=== PATIENT | female | born 1965 | race Caucasian/White ===

== ENCOUNTER 2020-02-02 14:13 | Inpatient (IN) ==
[2020-02-02] MEDS ORDERED: Vancomycin 1,000 MG VIAL ONE (14:56)
[2020-02-02] MEDS ORDERED: Ethanol\\Acetic Acid\\Na Ace\\Ben 1,000 ML IRRIG.SOLN IR ONE (14:56)
[2020-02-02] MEDS ORDERED: Ringers Solution, Lactated 1,000 ML IVC SCH (15:00)
[2020-02-02] MEDS ORDERED: Famotidine 20 MG/2 ML VIAL IVP ONE (15:21)
[2020-02-02] MEDS ORDERED: Acetaminophen IV 1,000 MG/100 ML INFUS..BTL IVPB ONE (15:21)
[2020-02-02] MEDS ORDERED: *HR* OxyCODONE Immed Rel 5 MG TABLET PO PRN (15:22)
[2020-02-02] MEDS ORDERED: Ketorolac 15 MG/ML VIAL IVP ONE (15:22)
[2020-02-02] MEDS ORDERED: *HR* HYDROmorphone PF 0.5 MG/0.5 ML SYRINGE IVP PRN (15:22)
[2020-02-02] MEDS ORDERED: Ondansetron 4 MG/2 ML VIAL IVP ONE (15:22)
[2020-02-02] MEDS ORDERED: *HR* Promethazine 25 MG/ML VIAL IVP PRN (15:22)
[2020-02-02 15:27] LABS: Sodium 138 mEq/L (136-145)
[2020-02-02] MEDS ORDERED: *HR* Midazolam HCl 2 MG/2 ML VIAL ONE (15:35)
[2020-02-02] MEDS ORDERED: Ropivacaine/PF 0.5% 30 ML VIAL ONE (15:36)
[2020-02-02] MEDS ORDERED: Dexamethasone 4 MG/ML VIAL ONE (15:39)
[2020-02-02] MEDS ORDERED: Lidocaine -MPF 2% 2 ML VIAL ONE (15:39)
[2020-02-02] MEDS ORDERED: Ondansetron 4 MG/2 ML VIAL ONE (15:39)
[2020-02-02] MEDS ORDERED: *HR* Succinylcholine 200 MG/10 ML VIAL IVP ONE (15:39)
[2020-02-02] MEDS ORDERED: Lidocaine -MPF 4% 5 ML AMPUL ONE (15:39)
[2020-02-02] MEDS ORDERED: *HR* Propofol 200 MG/20 ML VIAL IVP ONE (15:40)
[2020-02-02] MEDS ORDERED: *HR* FentaNYL (PF) 100 MCG/2 ML VIAL ONE (15:58)
[2020-02-02] MEDS ORDERED: *HR* PHENYLEPHRINE 1,000 MCG/10 ML SYRINGE IVP ONE (16:38)
[2020-02-02] MEDS ORDERED: *HR* Enoxaparin 30 MG/0.3 ML SYRINGE SQ SCH (18:00)
[2020-02-02 18:24] LABS: Hematocrit 32.9 % (35.3-44.9); Hemoglobin 10.4 g/dL (11.5-15.4)
[2020-02-02] MEDS ORDERED: Ondansetron 4 MG/2 ML VIAL IVP PRN (18:30)
[2020-02-02] MEDS ORDERED: MOM Conc 10 ML UD.LIQ PO PRN (18:30)
[2020-02-02] MEDS ORDERED: *HR* Dextrose 50 % in Water (Vial) 50 ML VIAL IVP PRN (18:30)
[2020-02-02] MEDS ORDERED: Dextrose Gel 15 GM/37.5 ML TUBE PO PRN ×2 (18:30)
[2020-02-02] MEDS ORDERED: Sennosides 8.6 MG TABLET PO PRN (18:30)
[2020-02-02] MEDS ORDERED: D5% in Water 1,000 ML IVC PRN (18:30)
[2020-02-02] MEDS: Ringers Solution, Lactated 1,000 ML IVC SCH (20:52)
[2020-02-02] MEDS: Gabapentin 400 MG CAPSULE PO SCH (20:53)
[2020-02-02] MEDS: Doxycycline 100 MG CAPSULE PO SCH (20:53)
[2020-02-02] MEDS ORDERED: traZODone 50 MG TABLET PO SCH (21:00)
[2020-02-02 23:28] LABS: eGFR For African Americans > 60 (> 60); eGFR For Non-African Americans > 60 (> 60)
[2020-02-03] MEDS: *HR* OxyCODONE Immed Rel 5 MG TABLET PO PRN ×3 (03:42→17:03)
[2020-02-03] MEDS ORDERED: *HR* Enoxaparin 30 MG/0.3 ML SYRINGE SQ SCH (06:00)
[2020-02-03 06:30] LABS: Hematocrit 30.8 % (35.3-44.9); Hemoglobin 9.7 g/dL (11.5-15.4)
[2020-02-03 06:54] LABS: BUN/Creatinine Ratio 20 (6-26); Blood Urea Nitrogen 14 mg/dL (6-20); Calcium 8.9 mg/dL (8.6-10.3); Carbon Dioxide 24 mEq/L (23-29); Chloride 105 mEq/L (98-107); Glucose 177 mg/dL (70-105); Osmolality,Calculated 289 (280-300); Sodium 137 mEq/L (136-145); eGFR For African Americans > 60 (> 60); eGFR For Non-African Americans > 60 (> 60)
[2020-02-03] MEDS: Doxycycline 100 MG CAPSULE PO SCH (08:08)
[2020-02-03] MEDS: *HR* HYDROcodone/Acet 5/325 mg TABLET PO PRN ×2 (08:08→14:08)
[2020-02-03] MEDS: Gabapentin 400 MG CAPSULE PO SCH ×2 (08:08→14:16)
[2020-02-03] MEDS ORDERED: PARoxetine 20 MG TABLET PO SCH (09:00)
[2020-02-03] MEDS ORDERED: Lactobacillus 1 EACH CAP.SPRINK PO SCH (09:00)
[2020-02-03] MEDS: Ringers Solution, Lactated 1,000 ML IVC SCH (14:28)
[2020-02-03 15:27] VITALS: BP 143/83
== END 2020-02-03 17:50 | disposition home health service (06) | DRG 322 ==
LOC: SAMDAY 14:13 → 3NENU 19:50
PROVIDERS: ADMIT Orthopaedic Surgery; ATTEND Orthopaedic Surgery